=== PATIENT | male | born 1960 | race Hispanic/Latino ===

== ENCOUNTER 2018-07-27 15:13 | Emergency (ER) | payer OTHER ==
[2018-07-27 15:22] VITALS: BMI 28.4
[2018-07-27] MEDS ORDERED: Sodium Chloride 0.9% 1,000 ML IV STA (15:26)
[2018-07-27 15:27] VITALS: RESP 18; TEMP 98.4
--- NOTE | 2018-07-27 15:33 | ED PDOC ---
Arrival/HPI - General Chief Complaint: Male Genitourinary Time Seen by Provider: 07/27/18 15:20 - History of Present Illness Narrative History of Present Illness (Text): 07/27/18 15:32 Patient is a 58 year old female, with no significant past medical history, sent from Dr. Bland' office for abdominal pain and frequency associated with increased water intake PO since 3 days. Patient informs of developing suprapubic pain today. Patient denies dysuria, hesitancy, penile discharge, scrotal pain, constipation, nausea, vomiting, diarrhea, fevers, headache, dizziness, or any other complaint. Time/Duration: < week (3 days) Symptom Onset: Gradual Symptom Course: Unchanged Activities at Onset: Light Past Medical History - Provider Review Nursing Documentation Reviewed: Yes Primary Care Provider: Fani Bland - Cardiac Hx Cardiac Disorders: Yes Hx Hypertension: Yes - Psychiatric Hx Substance Use: No - Surgical History Hx Musculoskeletal Surgery: Yes (right knee) - Anesthesia Hx Anesthesia: Yes Hx Anesthesia Reactions: No Hx Malignant Hyperthermia: No Family/Social History - Physician Review Nursing Documentation Reviewed: Yes Family/Social History: Unknown Family HX Smoking Status: Never Smoked Hx Alcohol Use: No Hx Substance Use: No Allergies/Home Meds Allergies/Adverse Reactions: Allergies Sulfa (Sulfonamide Antibiotics) Allergy (Verified 07/27/18 15:21) RASH Home Medications: Home Meds Medication Instructions Recorded Confirmed Hydrochlorothiazide [Microzide] 12.5 mg PO DAILY 07/27/18 07/27/18 Review of Systems - Physician Review All systems were reviewed & negative as marked: Yes - Review of Systems Constitutional: Other (Increased liquid PO). absent: Fevers ENT: absent: Hearing Changes Respiratory: absent: SOB, Cough, Sputum, Wheezing Cardiovascular: absent: Chest Pain, Palpitations, Edema, Calf Pain, Orthopnea Gastrointestinal: Abdominal Pain. absent: Constipation, Diarrhea, Nausea, Vomiting Genitourinary Male: Frequency. absent: Dysuria, Hematuria, Other (no hesitancy, penile discharge, scrotal pain) Skin: absent: Rash Neurological: absent: Headache, Dizziness Physical Exam Vital Signs Reviewed: Yes Vital Signs Temp Pulse Resp BP Pulse Ox 07/27/18 15:27 98.4 F 69 18 159/94 H 97 Temperature: Afebrile Blood Pressure: Normal Pulse: Regular Respiratory Rate: Normal Appearance: Positive for: Well-Appearing, Non-Toxic, Comfortable Pain Distress: None Mental Status: Positive for: Alert and Oriented X 3 - Systems Exam Head: Present: Atraumatic, Normocephalic Pupils: Present: PERRL Extroacular Muscles: Present: EOMI Conjunctiva: Present: Normal Mouth: Present: Moist Mucous Membranes Neck: Present: Normal Range of Motion Respiratory/Chest: Present: Clear to Auscultation, Good Air Exchange. No: Respiratory Distress, Accessory Muscle Use, Wheezes, Rales, Rhonchi Cardiovascular: Present: Regular Rate and Rhythm, Normal S1, S2. No: Murmurs, Rub, Gallop Abdomen: Present: Tenderness (suprapubic). No: Distention, Peritoneal Signs, Rebound, Guarding Genitourinary Male: Present: Circumcised Penis. No: Penile Discharge, Testicle Tenderness, Testicle Swelling Back: Present: Normal Inspection Upper Extremity: Present: Normal Inspection. No: Cyanosis, Edema Lower Extremity: Present: Normal Inspection. No: Edema Neurological: Present: GCS=15, CN II-XII Intact, Speech Normal Skin: Present: Warm, Dry, Normal Color. No: Rashes Psychiatric: Present: Alert, Oriented x 3, Normal Insight, Normal Concentration Medical Decision Making ED Course and Treatment: 07/27/18 16:15 Impression: Patient is a 58 year old female, with no significant past medical history, who presents to the emergency department complaining of abdominal pain and increased frequency associated with increased water intake PO since 3 days Plan: -- Abdomen/Pelvis CT w/ IV Contrast -- EKG -- Labs -- IV Fluids -- Toradol -- Urine Culture -- Reassess and disposition Prior Visits: Notes and results from previous visits were reviewed. Progress Notes: 07/27/18 16:28 Post void residual:178 on bladder scan 07/27/18 18:37 EKG shows NSR at 69bpm with normal intervals and no st changes 07/27/18 18:56 FINDINGS: LOWER THORAX: Unremarkable. LIVER: Unremarkable. No gross lesion or ductal dilatation. Incidental finding(s): Innumerable simple hepatic cysts the largest near the diaphragm in the right hepatic lobe measures 2.6 cm. The preponderance are less than 1 cm. GALLBLADDER AND BILE DUCTS: Unremarkable. PANCREAS: Unremarkable. No gross lesion or ductal dilatation. SPLEEN: Unremarkable. ADRENALS: Unremarkable bilaterally. KIDNEYS AND URETERS: Unremarkable. No hydronephrosis. No solid mass. VASCULATURE: Atherosclerotic calcification and mural plaque present. Findings are seen throughout the aorta which is non aneurysmal. BOWEL: Constipation without fecal impaction or obstruction. APPENDIX: Unremarkable, retrocecal appendix. PERITONEUM: Unremarkable. No free fluid. No free air. LYMPH NODES: Unremarkable. No enlarged lymph nodes. BLADDER: Unremarkable. REPRODUCTIVE: Unremarkable. BONES: No acute fracture. OTHER FINDINGS: None. IMPRESSION: No significant or acute findings to account for/ related to the clinical presentation. Additional benign and/or incidental findings described above. 07/27/18 18:58 Patient refusing urinary catheter insertion. Spoke to Dr. Bland who will refer patient to urology - RAD Interpretation Radiology Orders: 07/27/18 15:32 ABD & PELVIS IV CONTRAST ONLY [CT] Stat - Medication Orders Current Medication Orders: Sodium Chloride (Sodium Chloride 0.9%) 1,000 mls @ 999 mls/hr IV .Q1H1M STA Stop: 07/27/18 16:26 Discontinued Medications Ketorolac Tromethamine (Toradol) 15 mg IVP STAT STA Stop: 07/27/18 15:27 - Scribe Statement The provider has reviewed the documentation as recorded by the Scribe Jacek Carson All medical record entries made by the Scribe were at my direction and personally dictated by me. I have reviewed the chart and agree that the record accurately reflects my personal performance of the history, physical exam, medical decision making, and the department course for this patient. I have also personally directed, reviewed, and agree with the discharge instructions and disposition. Disposition/Present on Arrival - Present on Arrival Any Indicators Present on Arrival: No History of DVT/PE: No History of Uncontrolled Diabetes: No Urinary Catheter: No History of Decub. Ulcer: No History Surgical Site Infection Following: None - Disposition Have Diagnosis and Disposition been Completed?: Yes Diagnosis: Hepatic cyst, Atherosclerotic cardiovascular disease, Urinary retention Disposition: HOME/ ROUTINE Disposition Time: 18:57 Patient Plan: Discharge Condition: GOOD Discharge Instructions (ExitCare): Lowering Your Risk of Heart Disease, Urinary Retention Additional Instructions: Follow-up with Dr. Agee within 2 days. Follow-up with Dr. Bland. Return to ED if condition worsens. Referrals: Fnai Bland MD [Primary Care Provider] - Follow up with primary Chaz Agee MD [Staff Provider] - Follow up with primary Forms: [employer] (Turkish)
[2018-07-27 16:28] LABS: PH,URINE 6.5 (4.7-8.0); URINE BILIRUBIN NEGATIVE (NEGATIVE); URINE BLOOD NEGATIVE (NEGATIVE); URINE GLUCOSE (UA) NEGATIVE (NEGATIVE); URINE LEUKOCYTE ESTERASE NEGATIVE Leu/uL (NEGATIVE); URINE PROTEIN NEGATIVE mg/dL (<30 mg/dL); URINE UROBILINOGEN 0.2 E.U./dL (<1 E.U./dL)
[2018-07-27 16:29] LABS: BASO # 0.02 K/mm3 (0.0-2.0); BASO % 0.2 % (0.0-3.0); EOS # 0.2 (0.0-0.7); EOS % 2.1 % (1.5-5.0); HEMOGLOBIN 15.5 g/dL (14.0-18.0); LYMPH # 2.4 (1.2-3.4); LYMPH % 24.7 % (22.0-35.0); MEAN CELL VOLUME 88.1 fl (80.0-105.0); MEAN CORPUSCULAR HEMOGLOBIN 30.3 pg (25.0-35.0); MEAN CORPUSCULAR HGB CONC 34.4 g/dl (31.0-37.0); MEAN PLATELET VOLUME 9.5 fl (7.0-11.0); MONO # 0.3 (0.1-0.6); MONO % 3.6 % (1.0-6.0); RBC 5.11 10^6/uL (3.5-6.1); WHITE BLOOD COUNT 9.6 10^3/uL (4.5-11.0)
[2018-07-27 16:30] LABS: URINE APPEARANCE CLEAR (CLEAR); URINE COLOR YELLOW (YELLOW)
[2018-07-27 16:32] LABS: INR 1.07; PARTIAL THROMBOPLASTIN TIME 35.7 Seconds (26.9-38.3); PROTHROMBIN TIME 11.9 SECONDS (9.4-12.5)
[2018-07-27 16:46] LABS: ALB/GLOB RATIO 1.4 (1.1-1.8); ALBUMIN 4.1 g/dL (3.0-4.8); ALT/SGPT 15 U/L (7-56); AST/SGOT 28 U/L (17-59); BLOOD UREA NITROGEN 17 mg/dL (7-21); CALCIUM 9.2 mg/dL (8.4-10.5); GFR NON-AFRICAN AMERICAN > 60; LIPASE 96 U/L (23-300)
--- NOTE | 2018-07-27 18:49 | CT ---
Date of service: 07/27/2018 PROCEDURE: CT Abdomen and Pelvis with contrast HISTORY: RLQ pain COMPARISON: None. TECHNIQUE: Intravenous contrast dose: 150 cc Omnipaque 350. Radiation dose: Total exam DLP = 1127.36. mGy-cm. This CT exam was performed using one or more of the following dose reduction techniques: Automated exposure control, adjustment of the mA and/or kV according to patient size, and/or use of iterative reconstruction technique. FINDINGS: LOWER THORAX: Unremarkable. LIVER: Unremarkable. No gross lesion or ductal dilatation. Incidental finding(s): Innumerable simple hepatic cysts the largest near the diaphragm in the right hepatic lobe measures 2.6 cm. The preponderance are less than 1 cm. GALLBLADDER AND BILE DUCTS: Unremarkable. PANCREAS: Unremarkable. No gross lesion or ductal dilatation. SPLEEN: Unremarkable. ADRENALS: Unremarkable bilaterally. KIDNEYS AND URETERS: Unremarkable. No hydronephrosis. No solid mass. VASCULATURE: Atherosclerotic calcification and mural plaque present. Findings are seen throughout the aorta which is non aneurysmal. BOWEL: Constipation without fecal impaction or obstruction. APPENDIX: Unremarkable, retrocecal appendix. PERITONEUM: Unremarkable. No free fluid. No free air. LYMPH NODES: Unremarkable. No enlarged lymph nodes. BLADDER: Unremarkable. REPRODUCTIVE: Unremarkable. BONES: No acute fracture. OTHER FINDINGS: None. IMPRESSION: No significant or acute findings to account for/ related to the clinical presentation. Additional benign and/or incidental findings described above.
[2018-07-27 19:08] VITALS: O2SAT 99
[2018-07-27 19:27] VITALS: BP 140/85; PULSE 66
--- NOTE | 2018-07-28 07:13 | CARD ---
APPROVED REPORT Date of service: 07/27/2018 EKG Measurement Heart [id number] <Conclusion> Normal sinus rhythm Normal ECG
== END 2018-07-27 19:27 | disposition home or self-care (01) ==
LOC: ED 15:13
DX: R33.9 Retention of urine, unspecified (principal); K76.89 Other specified diseases of liver; I25.10 Atherosclerotic heart disease of native coronary artery without angina pectoris; I10 Essential (primary) hypertension
CPT/HCPCS: 74177; 80053; 81003; 83690; 83735; 84100; 85025; 85610; 85730; 87086; 93005; 96361; 96374; 99283; J1885; J7030; Q9967